=== PATIENT | female | born 1990 | race Caucasian/White ===

== ENCOUNTER 2016-11-14 03:18 | Emergency (ER) | payer OTHER ==
[2016-11-14 05:04] LABS: HEMOGLOBIN 12.3 gm/dl (12.3-15.3); RED BLOOD COUNT 4.15 M/UL (4.00-5.10); WHITE BLOOD COUNT 11.1 K/UL (4.5-11.0)
[2016-11-14 05:20] LABS: BUN/CREATININE RATIO 16 (0-10)
== END 2016-11-14 06:40 | disposition home or self-care (01) ==
LOC: ER1 03:18
PROVIDERS: Specialist/Technologist Athletic Trainer
DX: G40.909 Epilepsy, unspecified, not intractable, without status epilepticus (principal); F17.200 Nicotine dependence, unspecified, uncomplicated; Z88.2 Allergy status to sulfonamides; Z88.0 Allergy status to penicillin; Z91.14 Patient's other noncompliance with medication regimen; Z79.899 Other long term (current) drug therapy
CPT/HCPCS: 36415; 70450; 80053; 82550; 84703; 85025; 93005; 99285

== ENCOUNTER 2017-01-12 17:32 | Emergency (ER) | payer OTHER | END 2017-01-12 18:14 | disposition home or self-care (01) | LOC: ER1 17:32 | DX: S20.359A Superficial foreign body of unspecified front wall of thorax, initial encounter (principal); Z88.0 Allergy status to penicillin; Z88.2 Allergy status to sulfonamides; F17.200 Nicotine dependence, unspecified, uncomplicated; Z90.49 Acquired absence of other specified parts of digestive tract | CPT/HCPCS: 99283 ==